=== PATIENT | male | born 1985 | race Caucasian/White ===

== ENCOUNTER 2021-06-17 14:30 | Outpatient (RCR) | payer OTHER, SELFPAY ==
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
--- NOTE | 2021-05-17 15:51 | PCPTNOTE ---
Patient did not show up for scheduled appointment this date; left voicemail for reminder call on next appointment.
--- NOTE | 2021-05-19 14:48 | PCPTNOTE ---
Patient called to cancel appointment this date due to illness.
--- NOTE | 2021-05-23 14:47 | PCPTNOTE ---
Patient called & cancelled scheduled appointment this date due to having respiratory infection on an antibiotic has two more days of medication then will feel more comfortable being around people.
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
--- NOTE | 2021-06-02 13:43 | PCPTNOTE ---
Patient called & cancelled scheduled appointment this date due to person giving him a ride to his appointment is unable to pick him up.
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
== END 2021-06-20 14:53 | disposition home or self-care (01) ==
LOC: ANHPT 14:30
DX: S82.141D Displaced bicondylar fracture of right tibia, subsequent encounter for closed fracture with routine healing (principal); S72.001D Fracture of unspecified part of neck of right femur, subsequent encounter for closed fracture with routine healing
CPT/HCPCS: 97110; 97112; 97140; 97161; 97530

== ENCOUNTER 2022-07-05 15:41 | Emergency (ER) | payer OTHER, SELFPAY ==
--- NOTE | ~2022-07-05 | XR_ITS ---
EXAMINATION: XR knee RT min 4V DATE: 07/05/2022 16:07 INDICATION: Right knee injury and pain. TECHNIQUE: 4 views of right knee were obtained. COMPARISON: None. FINDINGS: There is an old healed fracture of proximal tibia with medial and lateral plates and multip le screws. There is 1 mm step-off at articular surface of lateral tibial plateau. There is an old hea led fracture of fibular neck. Osteopenia is noted. There is mild osteoarthritis of lateral compartmen t. No knee joint effusion. IMPRESSION: 1. Mild posttraumatic osteoarthritis of lateral compartment of the knee. Reviewed, dictated and finalized at location A.
[2022-07-05 15:50] VITALS: BP 113/77; PULSE 105; RESP 16; TEMP 37.1; O2SAT 99
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
== END 2022-07-05 16:23 | disposition home or self-care (01) ==
PROVIDERS: Emergency Provider Nurse Practitioner Family; PCP Hospitalist
DX: S80.01XA Contusion of right knee, initial encounter (principal); W22.8XXA Striking against or struck by other objects, initial encounter; Z90.5 Acquired absence of kidney
CPT/HCPCS: 73564; 99213; G0463

== ENCOUNTER 2022-08-23 17:38 | Emergency (ER) | payer OTHER, SELFPAY ==
[2022-08-23 17:47] VITALS: BP 121/73; PULSE 102; RESP 18; TEMP 37.4; O2SAT 99
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
== END 2022-08-23 18:47 | disposition home or self-care (01) ==
PROVIDERS: Emergency Provider Nurse Practitioner
DX: S81.012A Laceration without foreign body, left knee, initial encounter (principal); W29.8XXA Contact with other powered hand tools and household machinery, initial encounter; Z90.5 Acquired absence of kidney
CPT/HCPCS: 12001; 99212; G0463

== ENCOUNTER 2022-09-01 16:50 | Emergency (ER) | payer OTHER, SELFPAY ==
--- NOTE | 2022-09-01 16:55 | ED.WOUNDLAC ---
HPI - Wound/Laceration General Chief Complaint: Wound/Laceration Stated Complaint: Stitches Removal Time Seen by Provider: 09/01/22 17:00 Source: patient Mode of arrival: ambulatory Limitations: no limitations History of Present Illness HPI narrative: Parminder is a 37-year-old male patient presenting to clinic today for a suture removal to the left medial knee. He reports that he had a laceration repair performed in the clinic on Sunday of last week. No sign of infection. No other concerns. Related Data Home Medications Medication Instructions Recorded Confirmed No Home Medications 07/05/22 09/01/22 Allergies Allergy/AdvReac Type Severity Reaction Status Date / Time No Known Allergies Allergy Mild Verified 09/01/22 16:54 Review of Systems Review of Systems: Pertinent positives per HPI. Patient denies any fever, chills, rash, headache, visual changes, dizziness, cough, runny nose, sore throat, shortness of breath, chest pain, palpitations, nausea, vomiting, diarrhea, constipation, abdominal pain, or any urinary issues. [facility] Family History Family History Other Family history of allergic disorder Family history of arthritis Hypertension Social History Social History Alcohol intake: current Comments At the time of my signature, I reviewed and agree with the nursing past medical, surgical, social, and family history. There is no relevant family history pertinent to the patient complaint. Exam Narrative: General: Well-developed, well nourished, in no apparent distress Head: Normocephalic, atraumatic. Cardio: Regular rate and rhythm, s1 and s2 normal, no murmur appreciated. Resp: Clear to auscultation bilaterally, no rhonchi, rales, wheezing or rubs. Integumentary: Happy, warm, and dry, well-healing suture line to the left medial knee with 3 interrupted sutures intact. Sutures were removed using a forceps and iris scissors. No sign of infection, no drainage, nontender Course Course Emergency Course: Portions of this record may have been created with voice recognition software. Level of Care: Express Care Visit Vital Signs Vital signs: Vital signs reviewed MDM - Wound/Laceration MDM Narrative Medical decision making narrative: At the time of visit patient is resting comfortably on the exam table. Suture removal completed in the clinic today without issue. Supportive measures were discussed with the patient he voiced understanding of the discharge instructions and agrees to treatment plan. Differential Diagnosis Differential diagnosis: Likely laceration, abrasion, avulsion of skin and other (Encounter for suture removal) Discharge Plan Discharge Clinical Impression: Encounter for removal of sutures Patient Disposition: Home, Self-Care Condition: Stable Instructions: Antibiotic Form, Stitches Removal (ED) Additional Instructions: Suture removal was performed in the clinic today Leave bandage on for 24 hours then may remove and apply band aide covering as needed. Keep wound clean and dry Watch for signs and symptoms of infection- redness, streaking, swelling, purulent discharge, or increase in pain. Follow up with your PCP as needed Prescriptions: No Action No Home Medications Follow-up/Referrals: PHYSICIAN,CLINICAL LABORATORY DIRECTOR [Primary Care Provider] - Time of Disposition: 17:01 Quality NIHSS Nursing Documentation ED NIHSS nursing documentation: reviewed/agree
[2022-09-01 16:58] VITALS: BP 132/77; PULSE 87; RESP 16; TEMP 36; O2SAT 99
--- NOTE | 2022-09-01 16:59 | PC.NURSE ---
muskrat trapper in to do suture removal.
== END 2022-09-01 17:04 | disposition home or self-care (01) ==
PROVIDERS: Emergency Provider Nurse Practitioner Family
DX: S81.012D Laceration without foreign body, left knee, subsequent encounter (principal); X58.XXXD Exposure to other specified factors, subsequent encounter
CPT/HCPCS: 99211; G0463

== ENCOUNTER 2022-10-05 16:30 | Outpatient (RCR) | payer OTHER, SELFPAY ==
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
--- NOTE | 2022-09-01 16:41 | OPREHPOC ---
Outpatient Therapy Plan of Care This is a Multidisciplinary Plan of Care that may contain components documented by all disciplines (PT, OT, and ST.) PT Problem 1 PT Problem #1 Knowledge Deficit PT Goal 1 Goal 1* pt demonstrate safe mobility skills, to decrease strain on R hip, with simulated work tasks PT Problem 2 PT Problem #2 Pain PT Goal 1 Goal 1* pain during work day, worst of 7/10 2* pt state 2 additional methods for him to manage his hip pain
--- NOTE | 2022-09-13 17:32 | PCPTNOTE ---
Pt. did not show for appointment 09/13/22.
--- NOTE | 2022-11-07 11:51 | PTOPDC ---
Assessment and note entered by Portia Smith, PT Evaluation Information Assessment Status Discharge - Pt Not Present Diagnosis R hip pain and LBP Onset July 2022 Assessment PT Clinical Summary DISCHARGE PT services Parminder received 3 PT sessions for the diagnosis of R hip and LBP. Education completed for pain management control and HEP. The goals were not addressed. Discharge PT services. Plan of Care PT Services Indicated No
== END 2022-11-07 12:52 | disposition home or self-care (01) ==
LOC: ANHPT 16:30
PROVIDERS: Visit Provider Hospitalist
DX: M54.50 Low back pain, unspecified (principal); M25.551 Pain in right hip; G89.29 Other chronic pain
CPT/HCPCS: 97110; 97112; 97140; 97161; 97530; 99199